=== PATIENT | male | born 1990 | race African-American/Black ===

== ENCOUNTER 2024-06-10 16:59 | Inpatient (IN) | payer MEDICARE ==
[2024-06-10] MEDS ORDERED: MAG HYDROX/AL HYDROX/SIMETH 355 ML BOTTLE PO PRN (17:01)
[2024-06-10] MEDS ORDERED: MAGNESIUM HYDROXIDE 2,400 MG/30 ML CUP PO PRN (17:01)
[2024-06-11] MEDS: HALOPERIDOL LACTATE 5 MG/ML 1 ML VIAL IM PRN (03:12)
[2024-06-11] MEDS: LORazepam 2 MG/ML INJ IM PRN (03:13)
[2024-06-11 07:53] LABS: Basophils % (A) 0 %; Eosinophils # (A) 0.2 k/uL (0-0.7); Eosinophils % (A) 5 %; HCT 40.1 % (39.0-53.0); HGB 12.3 gm/dL (13.0-17.5); Hypochromasia Slight; Lymphocytes # (A) 1.8 k/uL (1.0-4.8); Lymphocytes % (A) 49 %; MCH 29.1 pg (25.0-35.0); MCHC 30.7 g/dL (31.0-37.0); MCV 94.7 fL (80.0-100.0); Mean Platelet Volume 7.7; Monocytes # (A) 0.2 k/uL (0-1.0); Monocytes % (A) 5 %; Neutrophils # (A) 1.4 k/uL (1.3-7.7); Neutrophils % (A) 37 %; Platelet Count 276 k/uL (150-450); RBC 4.24 m/uL (4.30-5.90); RDW 12.3 % (11.5-15.5); WBC 3.7 k/uL (3.8-10.6)
[2024-06-11 08:01] LABS: ALT 34 U/L (4-49); AST 57 U/L (17-59); African American GFR (CKD) >90 (>60 ml/min/1.73 sqM); Albumin 3.8 g/dL (3.5-5.0); Alkaline Phosphatase 76 U/L (38-126); Anion Gap 6 mmol/L; Bilirubin,Unconjugated 0.2 mg/dL (0.0-1.1); Blood Urea Nitrogen 9 mg/dL (9-20); Calcium 8.9 mg/dL (8.4-10.2); Carbon Dioxide 26 mmol/L (22-30); Chloride 105 mmol/L (98-107); Glucose 92 mg/dL (74-99); Non-African American GFR(CKD) >90 (>60 ml/min/1.73 sqM); Potassium 4.1 mmol/L (3.5-5.1); Sodium 137 mmol/L (137-145); Total Bilirubin 0.2 mg/dL (0.2-1.3); Total Protein 6.2 g/dL (6.3-8.2)
[2024-06-11] MEDS: NICOTINE 21MG/24HR PATCH TRANSDERM SCH (09:09)
[2024-06-11] MEDS: LORazepam 1 MG TAB PO PRN (09:17)
[2024-06-11] MEDS: haloperidoL 5 MG TAB PO PRN ×2 (09:17→18:37)
[2024-06-11] MEDS: IBUPROFEN 600 MG TAB PO PRN (11:04)
[2024-06-11] MEDS ORDERED: HALOPERIDOL LACTATE 5 MG/ML 1 ML VIAL IM PRN (12:06)
[2024-06-11] MEDS: haloperidoL 5 MG TAB PO SCH (12:22)
[2024-06-11] MEDS: DIVALPROEX ER 500 MG TAB.ER.24H PO STA (12:22)
--- NOTE | 2024-06-11 12:24 | P.HP ---
Psychiatric H&P - . H&P Date: 06/11/24 History & Physical: Allergies Allergy/AdvReac Type Severity Reaction Status Date / Time No Known Allergies Allergy Verified 06/10/24 17:00 Vital Signs Temp 98.2 F 06/10/24 22:27 Pulse 78 06/10/24 22:27 Resp 20 06/10/24 22:27 BP 107/59 06/10/24 22:27 Pulse Ox 97 06/10/24 22:27 FiO2 Intake & Output 06/10/24 06/11/24 06/11/24 18:59 06:59 18:59 Weight 70 kg 71.849 kg Laboratory Last Values WBC 3.7 k/uL (3.8-10.6) L 06/11/24 07:18 RBC 4.24 m/uL (4.30-5.90) L 06/11/24 07:18 Hgb 12.3 gm/dL (13.0-17.5) L 06/11/24 07:18 Hct 40.1 % (39.0-53.0) 06/11/24 07:18 MCV 94.7 fL (80.0-100.0) 06/11/24 07:18 MCH 29.1 pg (25.0-35.0) 06/11/24 07:18 MCHC 30.7 g/dL (31.0-37.0) L 06/11/24 07:18 RDW 12.3 % (11.5-15.5) 06/11/24 07:18 Plt Count 276 k/uL (150-450) 06/11/24 07:18 MPV 7.7 06/11/24 07:18 Neutrophils % 37 % 06/11/24 07:18 Lymphocytes % 49 % 06/11/24 07:18 Monocytes % 5 % 06/11/24 07:18 Eosinophils % 5 % 06/11/24 07:18 Basophils % 0 % 06/11/24 07:18 Neutrophils # 1.4 k/uL (1.3-7.7) 06/11/24 07:18 Lymphocytes # 1.8 k/uL (1.0-4.8) 06/11/24 07:18 Monocytes # 0.2 k/uL (0-1.0) 06/11/24 07:18 Eosinophils # 0.2 k/uL (0-0.7) 06/11/24 07:18 Basophils # 0.0 k/uL (0-0.2) 06/11/24 07:18 Hypochromasia Slight 06/11/24 07:18 Sodium 137 mmol/L (137-145) 06/11/24 07:18 Potassium 4.1 mmol/L (3.5-5.1) 06/11/24 07:18 Chloride 105 mmol/L (98-107) 06/11/24 07:18 Carbon Dioxide 26 mmol/L (22-30) 06/11/24 07:18 Anion Gap 6 mmol/L 06/11/24 07:18 BUN 9 mg/dL (9-20) 06/11/24 07:18 Creatinine 0.84 mg/dL (0.66-1.25) 06/11/24 07:18 Est GFR (CKD-EPI)AfAm >90 (>60 ml/min/1.73 sqM) 06/11/24 07:18 Est GFR (CKD-EPI)NonAf >90 (>60 ml/min/1.73 sqM) 06/11/24 07:18 Glucose 92 mg/dL (74-99) 06/11/24 07:18 Calcium 8.9 mg/dL (8.4-10.2) 06/11/24 07:18 Total Bilirubin 0.2 mg/dL (0.2-1.3) 06/11/24 07:18 Conjugated Bilirubin 0.0 mg/dL (0.0-0.3) 06/11/24 07:18 Unconjugated Bilirubin 0.2 mg/dL (0.0-1.1) 06/11/24 07:18 Delta Bilirubin 0.0 mg/dL (0.0-0.2) 06/11/24 07:18 AST 57 U/L (17-59) 06/11/24 07:18 ALT 34 U/L (4-49) 06/11/24 07:18 Alkaline Phosphatase 76 U/L (38-126) 06/11/24 07:18 Total Protein 6.2 g/dL (6.3-8.2) L 06/11/24 07:18 Albumin 3.8 g/dL (3.5-5.0) 06/11/24 07:18 TSH 1.280 mIU/L (0.465-4.680) 06/11/24 07:18 06/11/24 08:45 IDENTIFYING DATA: Patient is a 34-year-old male. Lives with his sister, Unmarried, has 13 children. Works construction HPI: Patient presented to the hospital on 06/10, as a transfer from [facility]. As per EPS note, "Patient presented to [facility] by PD on petition stating "up and down emotions, combative verbally, walking into oncoming traffic. Bothering customers at local businesses. Clinical cert has diagnosis schizophrenia, paranoid type. Clinical cert states facts in support including walking into oncoming traffic, auditory hallucinations, delusions, and paranoid thoughts. Patient has had multiple inpatient psychiatric hospitalizations and states that he has not attended follow up and been noncompliant with outpatient medications. Patient has been sexually inappropriate verbally towards staff and verbally agitated requiring PRN in ER. RN verbalizes that patient placed in restraints due to verbal aggression and elopement risk. Patient able to be out of restraints and calm prior to transfer. Patient has had no physical outbursts and no physical harm to others. Patient denies suicidal and homicidal ideations. Patient reportedly recieved 3 PRNs since arriving at ER of Ativan 2MG IM, Haldol 5MG IM, and Benadryl 50MG IM on 06/09/2024 at 0800, 06/10/2024 at 0400 and 1130. Patient UDS+ Benzos, THC, and [place]. Patient denies ETOH use. Patient medical: missing all fingers on right hand per nurse to nurse, but able to attend to all ADLs on own, unknown reason for loss per ED RN. Patient had decreased potassium in ER 3.4, K+ replaced per ER report." Today, he states he does not know why he is in the hospital, he states the police took him to [facility], and then he got transferred here. Patient is a poor historian, and does not speak clearly. Patient is noted to be sexually inappropriate to peers and staff on the unit, and is currently on a 1:1 for safety. beelives that he does not need medications. has been intrusive and sexually innappropriate on the unit. Patient denies any suicidal or homicidal ideations intent or plan. At this time patient denies any auditory or visual hallucinations. Patient admits to using marijuana, and cigarettes, alcohol occasionally. PAST PSYCHIATRIC HISTORY: Patient states that he was inpatient at [facility] earlier this year. he claims that he follows up at [facility] with Dr Dutta. [Patient denies any history of suicide attempts in the past.] claims that he was previously on haldol and depakote in the past. PMH:As per ER note ALLERGIES: as per EMR CHEMICAL DEPENDENCY HISTORY: as per HPI FAMILY PSYCHIATRIC/SUBSTANCE USE HISTORY: [denies] SOCIAL HISTORY: Patient was born and raised in [[place], [place]. Unmarried, has 13 children, Lives with his sister, works construction. Has been to custodial, does not elaborate as to why. MENTAL STATUS EXAM: General Appearance: Patient appears to be [] stated age is alert, difficult to redirect, intrusive. Patient appears to have [poor] hygiene and grooming. Behavior: Patient is seated without any agitated behavior. intrusive. Speech: Patient's speech is garbled and nonpressured.] Mood/Affect: Patient reports their mood is fine, affect is congruent and constricted. Suicidality/Homicidality: Patient denies having any homicidal ideation intent or plan. [Denies any suicidal ideations intent or plan] Perceptions: Patient denies any visual hallucinations [and denies any auditory hallucinations] Though content/process: [There is no evidence of any delusional thought content and thought process is linear and goal-directed.] Memory and concentration: AOX3, grossly intact for the purposes of this session. Can spell "WORLD" backwards Judgment and insight: [poor]/impulsive. STRENGTHS/WEAKNESSES: strength is that patient is [resilient]. Weakness is that patient [has poor judgment and is impulsive] INTELLECT: [average] IMPRESSIONS: Schizophrenia cocaine abuse [nicotine dependance] [cannabis use disorder] PLAN: -Patient is admitted under [involuntary] status to MHU for stabilization of psychiatric symptoms and safety. Patient has [not] signed [adult voluntary form or medication consent] and is placed in patient's chart. [A second certification was completed and along with petition will be filed for court.] -Medications : Will start patient on Depakote 500mg qhs for mood stabilization, haldol 5mg bid for psychosis, cogentin 1mg qhs for EPS, trazodone 100mg qhs prn for sleep, -Ativan [and Haldol] PRN for agitation/aggression [-Patient was counselled on substance abuse and desired to cut back on use] -Patient was informed of the risks, benefits and side effects of the medication [and patient verbally consented to taking the medications. ] -Internal Medicine consult to perform medical evaluation and physical. -NRT - [nicotine patch] -SW on board for discharge planning. Encourage patient to participate in groups to work on coping skills. [Will await deferral and court date.] 06/11/24 11:58 06/11/24 12:22
[2024-06-11 15:11] LABS: Chol/HDL Ratio 2.69 Ratio; LDL Cholesterol,Calculated 58.9 mg/dL (0.0-131.0); VLDL Calculation 11.42 mg/dL (5.00-40.00)
[2024-06-11] MEDS: chlorproMAZINE 25 MG/ML 2 ML AMP IM STA (15:15)
[2024-06-11] MEDS: diphenhydrAMINE 50 MG/ML 1 ML VIAL IM STA (15:15)
[2024-06-11] MEDS ORDERED: DIVALPROEX ER 500 MG TAB.ER.24H PO SCH (21:00)
[2024-06-11] MEDS: ACETAMINOPHEN TAB 325 MG TAB PO PRN (21:38)
[2024-06-11] MEDS: VALPROIC ACID ORAL SOLN 250 MG/5 ML CUP PO SCH (21:39)
[2024-06-11] MEDS: traZODone HCL 100 MG TAB PO PRN (21:39)
[2024-06-11] MEDS: BENZTROPINE MESYLATE 1 MG TAB PO SCH (21:39)
--- NOTE | 2024-06-12 10:59 | P.PN ---
Progress Note - Text Progress Note Date: 06/12/24 Interval History: [place] [facility] [place] and was directable and agreeable to speak with literary writer.. The patient states he feels a lot better today. He states that he missed his last ZEE, but once he gets it back in his system, he will be like new again. Patient is currently still on a security 1:1, due to his sexually inappropriate behavior, however, the patient does seem to be mildly improving. Mechanical Maintenance Worker spoke to patient about receiving a ZEE, patient agreeable. Patient states that he slept like a baby last night, and that his appetite is good. He is concerned about a job interview Sunday, and he would like to be out by then. At this time patient denies any suicidal or homical ideations, intent or plan. Patient denies any auditory, visual hallucinations and denies any paranoia or delusions. Patient denies any side effects from the medications and has been compliant with meds. MENTAL STATUS EXAM: General Appearance: Patient appears to be stated age is alert, difficult to redirect, intrusive. Patient appears to have mildly improving hygiene and grooming. Wearing a sock on his head, and wearing glasses. Behavior: Patient is seated without any agitated behavior. intrusive. improving mildly Speech: Patient's speech is rapid and nonpressured. Mood/Affect: Patient reports their mood is fine, affect is congruent and constricted. improving mildly Suicidality/Homicidality: Patient denies having any homicidal ideation intent or plan. Denies any suicidal ideations intent or plan Perceptions: Patient denies any visual hallucinations and denies any auditory hallucinations Though content/process: There is no evidence of any delusional thought content and thought process is linear and goal-directed. rambling at times, focused on discharge Memory and concentration: AOX3, grossly intact for the purposes of this session. Judgment and insight: Poor/impulsive. mildly improving IMPRESSIONS: Schizophrenia cocaine abuse Nicotine dependance Cannabis use disorder PLAN: -Patient is admitted under involuntary status to MHU for stabilization of psychiatric symptoms and safety. Patient has not signed adult voluntary form or medication consent and is placed in patient's chart. -Medications : increase Depakene Syrup 750mg qhs for mood stabilization, increase haldol 7mg bid for psychosis, cogentin 1mg qhs for EPS, trazodone 100mg qhs prn for sleep, will give Haldol D injection tomorrow. -Ativan and Haldol PRN for agitation/aggression -continue 1:1 sitter as patient is still impulsive and sexually preoccupied. -NRT -nicotine patch -SW on board for discharge planning. Encourage patient to participate in groups to work on coping skills. Will await deferral and court date. hopeful to discharge early next week once patient is transitioned onto ZEE.
[2024-06-12] MEDS: NICOTINE GUM (POLACRILEX) 2 MG GUM BUCCAL PRN (11:49)
--- NOTE | 2024-06-12 16:56 | P.PN ---
Progress Note - Text Progress Note Date: 06/12/24 Discussed with RN, patient is actively manic and not appropriate to be seen and evaluated at this time.
--- NOTE | 2024-06-12 17:41 | P.PN ---
Progress Note - Text Progress Note Date: 06/11/24 attempted to see patient. Patient not stable to be assessed.
[2024-06-12] MEDS: haloperidoL 5 MG TAB PO SCH (21:40)
[2024-06-12] MEDS: VALPROIC ACID ORAL SOLN 250 MG/5 ML CUP PO SCH (21:40)
--- NOTE | 2024-06-13 10:55 | P.PN ---
Progress Note - Text Progress Note Date: 06/13/24 Interval History: Patient was seen in the [facility] [place], and was directable and agreeable to speak with director underwriter sales. The patient states he is good today. Patient is currently still on a security 1:1, due to his sexually inappropriate behavior, however, the patient continues to be mildly improving. Paper Mill Superintendent spoke to patient about receiving a ZEE, patient agreeable. Will give first dose today. Patient states that he slept well last night, and that his appetite is good. He is still quite intrusive, and ramb ling on at times, this is improving mildly compared to yesterday. He is not endorsing any depression or anxiety. At this time patient denies any suicidal or homicidal ideations, intent or plan. Patient denies any auditory, visual hallucinations and denies any paranoia or delusions. Patient denies any side effects from the medications and has been compliant with meds. MENTAL STATUS EXAM: General Appearance: Patient appears to be stated age is alert, difficult to redirect, intrusive. Patient appears to have mildly improving hygiene and grooming. Wearing a sock on his head, and wearing glasses. Behavior: Patient is seated without any agitated behavior. intrusive. improving mildly Speech: Patient's speech is rapid and nonpressured. Mood/Affect: Patient reports their mood is good, affect is congruent and constricted. improving mildly Suicidality/Homicidality: Patient denies having any homicidal ideation intent or plan. Denies any suicidal ideations intent or plan Perceptions: Patient denies any visual hallucinations and denies any auditory hallucinations Though content/process: There is no evidence of any delusional thought content and thought process is linear and goal-directed. rambling at times, focused on discharge Memory and concentration: AOX3, grossly intact for the purposes of this session. Judgment and insight: Poor/impulsive. mildly improving IMPRESSIONS: Schizophrenia cocaine abuse Nicotine dependance Cannabis use disorder PLAN: -Patient is admitted under involuntary status to MHU for stabilization of psychiatric symptoms and safety. Patient has not signed adult voluntary form or medication consent and is placed in patient's chart. -Medications : increase Depakene Syrup 1000mg qhs for mood stabilization, haldol PO for psychosis, titrate down over the weekend, increase cogentin 2mg qhs for EPS, increase trazodone 150mg qhs for sleep, add Haldol D 100 mg IM today, 06/13, next dose of 60mg IM 06/15, then 160 mg q 3 weeks, with it being due 07/04. -Ativan and Haldol PRN for agitation/aggression -continue 1:1 sitter as patient is still impulsive and sexually preoccupied. -NRT -nicotine patch -SW on board for discharge planning. Encourage patient to participate in groups to work on coping skills. Will await deferral and court date. hopeful to discharge sunday once patient is transitioned onto ZEE.
[2024-06-13] MEDS: HALOPERIDOL DECANOATE 100 MG/ML 1 ML VIAL IM STA (11:14)
[2024-06-13] MEDS: traZODone HCL 50 MG TAB PO SCH (21:02)
[2024-06-13] MEDS: VALPROIC ACID ORAL SOLN 250 MG/5 ML CUP PO SCH (21:03)
[2024-06-13] MEDS: haloperidoL 5 MG TAB PO ONE (21:03)
[2024-06-13] MEDS: BENZTROPINE MESYLATE 1 MG TAB PO SCH (21:03)
[2024-06-14] MEDS: haloperidoL 5 MG TAB PO SCH (08:13)
--- NOTE | 2024-06-14 15:18 | P.PN ---
Progress Note - Text Progress Note Date: 06/14/24 Interval History: Patient was seen wandering, and was directable and agreeable to speak with ciro butler in the interview room. Patient is currently still on a security 1:1, due to his sexually inappropriate behavior. discussed that his behaviors be to continue to improve should there be a consideration for discharge. Patient states expresses awareness into his behaviors and recognizes that they can seem disrespectful and frustrating to others and expresses that he will attempt to reduce them. However, he continues to be intrusive, displays elevated energy, and poor physical boundaries. He says his mood is "real good "and reports that he is doing well on the medications. He endorses good sleep and appetite. He asks that someone call his mother prior to discharge. At this time patient denies any suicidal or homicidal ideations, intent or plan. Patient denies any auditory, visual hallucinations and denies any paranoia or delusions. Patient denies any side effects from the medications and has been compliant with meds. MENTAL STATUS EXAM: General Appearance: Patient appears to be stated age is alert, able to redirect, intrusive. Patient appears to have mildly improving hygiene and grooming. Wearing a sock on his head, and wearing glasses. No jaundice Behavior: Patient is seated without any agitated behavior. intrusive Speech: Patient's speech is hyperverbal and nonpressured. Mood/Affect: Patient reports their mood is good, affect is congruent and constricted. improving mildly Suicidality/Homicidality: Patient denies having any homicidal ideation intent or plan. Denies any suicidal ideations intent or plan Perceptions: Patient denies any visual hallucinations and denies any auditory hallucinations Though content/process: There is no evidence of any delusional thought content and thought process is linear and goal-directed. rambling at times, focused on discharge Memory and concentration: AOX3, grossly intact for the purposes of this session. Judgment and insight: Poor/impulsive. mildly improving IMPRESSIONS: Schizoaffective disorder, bipolar type cocaine abuse Nicotine dependance Cannabis use disorder PLAN: -Patient is admitted under involuntary status to MHU for stabilization of psychiatric symptoms and safety. Patient has not signed adult voluntary form or medication consent and is placed in patient's chart. -Medications : Increase Depakene Syrup to 1250mg qhs for mood stabilization, haldol PO for psychosis, titrate down over the weekend, cogentin 2mg qhs for EPS, trazodone 150mg qhs for sleep, add Haldol D 100 mg IM today, 06/13, next dose of 60mg IM 06/15, then 160 mg q 3 weeks, with it being due 07/04. -Ativan and Haldol PRN for agitation/aggression -continue 1:1 sitter as patient is still impulsive and sexually preoccupied. -NRT -nicotine patch -SW on board for discharge planning. Encourage patient to participate in groups to work on coping skills. Will await deferral and court date. hopeful to discharge sunday once patient is transitioned onto ZEE.
[2024-06-14] MEDS: VALPROIC ACID ORAL SOLN 250 MG/5 ML CUP PO SCH (19:50)
[2024-06-15] MEDS: HALOPERIDOL DECANOATE 100 MG/ML 1 ML VIAL IM ONE (09:55)
--- NOTE | 2024-06-15 12:05 | P.PN ---
Progress Note - Text Progress Note Date: 06/15/24 Interval History: Patient was seen wandering, and was directable and agreeable to speak with ciro butler in the interview room. Patient is currently still on a security 1:1, due to his sexually inappropriate behavior. Discussed that his behaviors be to continue to improve should there be a consideration for discharge, but patient has been intrusive, inappropriate, lacking physical boundaries, and disinhibited. Informed to keep distance from others and not encroach in their physical space. Patient perseverates on calling various people and impulsively reaches for this provider's phone and then for a paperclip. He makes sexually inappropriate comments during assessment but is able to be verbally redirected. He says his mood is "hyper " because he would like to go home tomorrow. He endorses good sleep and appetite. He asks that someone call his mother prior to discharge. He reports sleeping well and eating well. At this time patient denies any suicidal or homicidal ideations, intent or plan. Patient denies any auditory, visual hallucinations and denies any paranoia or delusions. Patient denies any side effects from the medications and has been compliant with meds. MENTAL STATUS EXAM: General Appearance: Patient appears to be stated age is alert, able to redirect, intrusive. Patient appears to have mildly improving hygiene and grooming. Wearing a sock on his head. No jaundice Behavior: Patient has elevated energy and intrusive. Disinhibition Speech: Patient's speech is hyperverbal and nonpressured. Mood/Affect: Patient reports their mood is "hyper", affect is elevated Suicidality/Homicidality: Patient denies having any homicidal ideation intent or plan. Denies any suicidal ideations intent or plan Perceptions: Patient denies any visual hallucinations and denies any auditory hallucinations Though content/process: There is no evidence of any delusional thought content and thought process is linear and goal-directed. rambling at times, focused on discharge Memory and concentration: AOX3, grossly intact for the purposes of this session. Judgment and insight: Poor/impulsive. mildly improving IMPRESSIONS: Schizoaffective disorder, bipolar type cocaine abuse Nicotine dependance Cannabis use disorder PLAN: -Patient is admitted under involuntary status to MHU for stabilization of psychiatric symptoms and safety. Patient has not signed adult voluntary form or medication consent and is placed in patient's chart. -Medications : Increase Depakene Syrup to 250 qAM and 1250mg qhs for mood stabilization, haldol PO tapered off, cogentin 2mg qhs for EPS, trazodone 150mg qhs for sleep, Haldol D 100 mg IM 06/13, received today 60mg IM 06/15 -Ativan and Haldol PRN for agitation/aggression -continue 1:1 sitter as patient is still impulsive and sexually preoccupied. -NRT -nicotine patch -SW on board for discharge planning. Encourage patient to participate in groups to work on coping skills. Will await deferral and court date.
[2024-06-15] MEDS: VALPROIC ACID ORAL SOLN 250 MG/5 ML CUP PO SCH (12:30)
[2024-06-15] MEDS: haloperidoL 1 MG TAB PO ONE (20:37)
[2024-06-16] MEDS ORDERED: traZODone HCL 100 MG TAB PO PRN (10:09)
[2024-06-16] MEDS ORDERED: traZODone HCL 50 MG TAB PO PRN (10:21)
--- NOTE | 2024-06-16 10:30 | P.PN ---
Progress Note - Text Progress Note Date: 06/16/24 Interval History: [facility], and was directable and agreeable to speak with database report writer. Patient remains on a 1:1, due to his sexually inappropriate behavior. Discussed that his behaviors need to continue to improve should there be a consideration for discharge, but patient has continued to be intrusive, inappropriate, lacking physical boundaries, and disinhibited. Director Microbiology explained to the patient that he needs to practice more self control, and stay away from female co-patients, due to him making them feel uncomfortable. Patient verbalized understanding, however, is still focused on discharge. He endorses good sleep and appetite. He reports sleeping well and eating well. At this time patient denies any suicidal or homicidal ideations, intent or plan. Patient denies any auditory, visual hallucinations and denies any paranoia or delusions. Patient denies any side effects from the medications and has been compliant with meds. MENTAL STATUS EXAM: General Appearance: Patient appears to be stated age is alert, able to redirect, intrusive. Patient appears to have mildly improving hygiene and grooming. Behavior: Patient has elevated energy and intrusive. mildly improving. Speech: Patient's speech is hyperverbal and nonpressured. Mood/Affect: Patient reports their mood is "great", affect is elevated Suicidality/Homicidality: Patient denies having any homicidal ideation intent or plan. Denies any suicidal ideations intent or plan Perceptions: Patient denies any visual hallucinations and denies any auditory hallucinations Though content/process: There is no evidence of any delusional thought content and thought process is linear and goal-directed. rambling at times, focused on discharge Memory and concentration: AOX3, grossly intact for the purposes of this session. Judgment and insight: Poor/impulsive. mildly improving IMPRESSIONS: Schizoaffective disorder, bipolar type cocaine abuse Nicotine dependance Cannabis use disorder PLAN: -Patient is admitted under involuntary status to MHU for stabilization of psychiatric symptoms and safety. Patient has not signed adult voluntary form or medication consent and is placed in patient's chart. -Medications : add seroquel 100mg daily + 200mg qhs, increase Depakene Syrup to 500mg qAM and 1250mg qhs for mood stabilization, cogentin 2mg qhs for EPS, change trazodone 150mg qhs PRN for sleep, Haldol D 100 mg IM 06/13, 60mg IM 06/15, potential 50mg IM dose of Haldol D on 06/17 -Ativan and Haldol PRN for agitation/aggression -continue 1:1 sitter as patient is still impulsive and sexually preoccupied. -NRT -nicotine patch -SW on board for discharge planning. Encourage patient to participate in groups to work on coping skills. Will await deferral and court date.
[2024-06-16] MEDS: QUEtiapine 100 MG TAB PO SCH (11:14)
[2024-06-16] MEDS: VALPROIC ACID ORAL SOLN 250 MG/5 ML CUP PO SCH (11:40)
[2024-06-16] MEDS: chlorproMAZINE 25 MG TAB PO PRN (11:42)
[2024-06-16] MEDS: LORazepam 2 MG/ML INJ IM PRN (18:54)
[2024-06-16] MEDS: ZIPRASIDONE 20 MG VIAL IM STA (18:55)
[2024-06-17] MEDS: QUEtiapine 200 MG TAB PO SCH
[2024-06-17] MEDS: chlorproMAZINE 25 MG/ML 2 ML AMP IM PRN (05:11)
--- NOTE | 2024-06-17 11:05 | P.PN ---
Progress Note - Text Progress Note Date: 06/17/24 Interval History: Patient was seen in his room, and was directable and agreeable to speak with ruben pascal at the bedside. Patient remains on a 1:1, due to his sexually inappropriate behavior. Discussed once again that his behaviors need to continue to improve should there be a consideration for discharge, but patient has continued to be intrusive, inappropriate, lacking physical boundaries, and physically violent, punching hill. The patient required security assist yesterday afternoon and this morning for IM PRNs, for being verbally and physically violent. Elementary Education Teacher explained to the patient that he needs to practice more self control. Patient verbalized understanding, however, is still focused on discharge. He endorses good sleep and appetite. He reports sleeping well and eating well. At this time patient denies any suicidal or homicidal ideations, intent or plan. Patient denies any auditory, visual hallucinations and denies any paranoia or delusions. Patient denies any side effects from the medications and has been compliant with meds. MENTAL STATUS EXAM: General Appearance: Patient appears to be stated age is alert, able to redirect, intrusive. Patient appears to have mildly improving hygiene and grooming. Behavior: Patient has elevated energy and intrusive. mildly improving, fairly sedated Speech: Patient's speech is a mumble and nonpressured Mood/Affect: Patient reports their mood is "all right", affect is constricted Suicidality/Homicidality: Patient denies having any homicidal ideation intent or plan. Denies any suicidal ideations intent or plan Perceptions: Patient denies any visual hallucinations and denies any auditory hallucinations Though content/process: There is no evidence of any delusional thought content and thought process is linear and goal-directed. rambling at times, focused on discharge Memory and concentration: AOX3, grossly intact for the purposes of this session. Judgment and insight: Poor/impulsive. mildly improving IMPRESSIONS: Schizoaffective disorder, bipolar type cocaine abuse Nicotine dependance Cannabis use disorder PLAN: -Patient is admitted under involuntary status to MHU for stabilization of psychiatric symptoms and safety. Patient has not signed adult voluntary form or medication consent and is placed in patient's chart. -Medications : Increase seroquel 200mg daily + 300mg qhs, increase Depakene Syrup to 500mg qAM and 1500mg qhs for mood stabilization, cogentin 2mg qhs for EPS, trazodone 150mg qhs PRN for sleep, Haldol D 100 mg IM 06/13, 60mg IM 06/15, will give 50mg IM dose of Haldol D today on 06/17 -Ativan and Haldol PRN for agitation/aggression -continue 1:1 sitter as patient is still impulsive and sexually preoccupied. -NRT -nicotine patch -SW on board for discharge planning. Encourage patient to participate in groups to work on coping skills. Will await deferral and court date. hopeful for discharge in 1-2 days
[2024-06-17] MEDS: HALOPERIDOL DECANOATE 50 MG/ML 1 ML VIAL IM ONE (17:03)
[2024-06-17] MEDS: QUEtiapine 100 MG TAB PO SCH (20:16)
[2024-06-17] MEDS: VALPROIC ACID ORAL SOLN 250 MG/5 ML CUP PO SCH (20:17)
[2024-06-18] MEDS: QUEtiapine 200 MG TAB PO SCH (08:50)
[2024-06-18 08:54] VITALS: BP 115/82; PULSE 112; RESP 20; TEMP 97.2
--- NOTE | 2024-06-18 11:30 | P.DS ---
Providers Date of admission: 06/10/24 22:17 Expected date of discharge: 06/18/24 Attending physician: Thierno Rosa MD Consults: 06/10/24 17:01 Consult Physician Routine Consulting Provider: Bay Tomlinson Consult Reason/Comments: History and Physical, New Admission Do you want consulting provider notified?: Yes Primary care physician: Stated None - Discharge Diagnosis(es) (1) Schizoaffective disorder, bipolar type Current Visit: Yes Status: Acute Priority: High (2) Cocaine abuse Current Visit: Yes Status: Acute Priority: High (3) Nicotine dependence Current Visit: Yes Status: Acute Priority: Low (4) Cannabis use disorder Current Visit: Yes Status: Acute Priority: Medium Hospital Course: Admission HPI: Admission note was completed by insurance writer "Patient is a 34-year-old male. Lives with his sister, Unmarried, has 13 children. Works construction. Patient presented to the hospital on 06/10, as a transfer from [facility]. As per EPS note, "Patient presented to [facility] by PD on petition stating "up and down emotions, combative verbally, walking into oncoming traffic. Bothering customers at local [employer]. Clinical cert has diagnosis schizophrenia, paranoid type. Clinical cert states facts in support including walking into oncoming traffic, auditory hallucinations, delusions, and paranoid thoughts. Patient has had multiple inpatient psychiatric hospitalizations and states that he has not attended follow up and been noncompliant with outpatient medications. Patient has been sexually inappropriate verbally towards staff and verbally agitated requiring PRN in ER. RN verbalizes that patient placed in restraints due to verbal aggression and elopement risk. Patient able to be out of restraints and calm prior to transfer. Patient has had no physical outbursts and no physical harm to others. Patient denies suicidal and homicidal ideations. Patient reportedly recieved 3 PRNs since arriving at ER of Ativan 2MG IM, Haldol 5MG IM, and Benadryl 50MG IM on 06/09/2024 at 0800, 06/10/2024 at 0400 and 1130. Patient UDS+ Benzos, THC, and Cocaine. Patient denies ETOH use. Patient medical: missing all fingers on right hand per nurse to nurse, but able to attend to all ADLs on own, unknown reason for loss per ED RN. Patient had decreased potassium in ER 3.4, K+ replaced per ER report." Today, he states he does not know why he is in the hospital, he states the police took him to [place], and then he got transferred here. Patient is a poor historian, and does not speak clearly. Patient is noted to be sexually inappropriate to peers and staff on the unit, and is currently on a 1:1 for safety. beelives that he does not need medications. has been intrusive and sexually innappropriate on the unit. Patient denies any suicidal or homicidal ideations intent or plan. At this time patient denies any auditory or visual hallucinations. Patient admits to using marijuana, and cigarettes, alcohol occasionally." Hospital course: Upon admission to the unit patient was admitted involuntarily on a petition and certificate and a second certificate was completed and faxed to the courts. Patient apparently already was on a active court order through [facility]. Patient was initially fairly impulsive, sexually preoccupied however with time he eventually and got along well with other patients on the unit and followed unit protocol. patient did have several PRN meds for agitation and intrusiveness and not being directable. Patient was compliant with the medications and denied any side effects throughout hospital course. Patient was started on [haldol and transitioned onto ZEE Haldol D a total of 200 mg IM to help ensure compliance. depakote increased to 500 mg daily + 1500 mg PO hs for mood stabilization. Seroquel 200 mg daily +300 mg nightly for mood stabilization trazodone 150 mg qhs for insomnia/mood. cogentin 2 mg hs for eps prophylaxis. Patient spoke of his stressors. Patient was also seen by medical team for history and physical exam. Throughout the course of the hospitalization patient gradually improved with regards to mood, anxiety, agitation, impulsivity and psychosis, sleep and returned back to their baseline level of functioning. On the day of discharge patient denied any suicidal or homicidal ideations intent or plan denied any auditory or visual hallucinations. Patient endorsed wanting to live for their health and kids. The patient denied any access to guns or weapons. Patient denied any paranoia and did not endorse any delusions. Patient does have a significant history of substance abuse and was counseled on abstaining from all substances including alcohol and marijuana. Patient was offered however declined inpatient substance-abuse rehab. Patient elected to do outpatient substance use treatment program through their outpatient provider. Patient was also counseled on the medications and need for regular compliance and was encouraged to follow-up with their outpatient appointment for mental health and also for primary care. Sw attempted several times to speak to patients girlfriend however she did not return the call. patient did speak with her and claims that he is allowed back, he has the keys and he will also be following up at [facility] with his psychiatrist Dr. Dutta for continued outpatient mental health treatment. Mental status exam: General Appearance: Patient appears to be wearing a hat, stated age is alert, pleasant, and comes to be cooperative. Patient is in no acute distress and has improved hygiene and grooming Behavior: Patient is calmly seated without any agitated behavior. Less intrusive and impulsive today. Speech: Patient's speech is fluent and nonpressured. Mood/Affect: Patient reports their mood is "good", affect is congruent and euthymic. Suicidality/Homicidality: Patient denies having any suicidal or homicidal ideation intent or plan. Perceptions: Patient denies any auditory or visual hallucinations. Though content/process: There is no evidence of any delusional thought content and thought process is linear and goal-directed. More future oriented Memory and concentration: AOX3, grossly intact for the purposes of this session. Can spell "WORLD" backwards correctly. Judgment and insight: Chronically poor/limited and impulsive, however has improved with guarded prognosis Impression: Schizoaffective disorder bipolar type Traumatic brain injury Cocaine abuse Cannabis use disorder Nicotine dependence Plan: -Continue with discharge today as patient has improved and stabilized psychiatrically and is not currently an imminent threat to themself and/or others. Patient will remain at chronically elevated risk for harm to self and/or others due to their impulsivity and substance abuse. -Continue medications: Seroquel 200 mg daily +300 mg nightly for mood stabilization, Haldol D IM every 2 weeks 200 mg, next dose will be due on 06/30. Depakote 500 mg daily +1500 mg nightly for mood stabilization/agitation, Cogentin 2 mg nightly for EPS symptoms, trazodone 150 mg nightly as needed for sleep -Patient was counseled on the need for medication compliance and appropriate follow-up at mental health and also primary care for medical issues. Patient verbalized understanding and agreed. -Social work to help coordinate patients discharge today arrange for and conduct family meeting to ensure safety upon discharge and answer any questions/concerns. patient will be given a ride back to his home in [place] with his girlfriend and will continue with his outpatient follow up [facility] with Dr Dutta. also to ensure safe home environment that guns/weapons are either removed from the home or locked away. Social work also to arrange for patients follow up appointments for psychiatric care along with follow up with primary care provider. -Patient counseled on abstaining from recreational drugs and marijuana and alcohol. Was informed/educated on the adverse effects on their physical and mental health. Patient verbally agreed and understood. Patient was offered substance abuse treatment however declined at this time. -Patient was instructed to return to the hospital or seek immediate medical care if their psychiatric or medical symptoms do worsen or reoccur. Allergies Allergy/AdvReac Type Severity Reaction Status Date / Time No Known Allergies Allergy Verified 06/11/24 13:33 Laboratory Results WBC 3.7 k/uL (3.8-10.6) L 06/11/24 07:18 RBC 4.24 m/uL (4.30-5.90) L 06/11/24 07:18 Hgb 12.3 gm/dL (13.0-17.5) L 06/11/24 07:18 Hct 40.1 % (39.0-53.0) 06/11/24 07:18 MCV 94.7 fL (80.0-100.0) 06/11/24 07:18 MCH 29.1 pg (25.0-35.0) 06/11/24 07:18 MCHC 30.7 g/dL (31.0-37.0) L 06/11/24 07:18 RDW 12.3 % (11.5-15.5) 06/11/24 07:18 Plt Count 276 k/uL (150-450) 06/11/24 07:18 MPV 7.7 06/11/24 07:18 Neutrophils % 37 % 06/11/24 07:18 Lymphocytes % 49 % 06/11/24 07:18 Monocytes % 5 % 06/11/24 07:18 Eosinophils % 5 % 06/11/24 07:18 Basophils % 0 % 06/11/24 07:18 Neutrophils # 1.4 k/uL (1.3-7.7) 06/11/24 07:18 Lymphocytes # 1.8 k/uL (1.0-4.8) 06/11/24 07:18 Monocytes # 0.2 k/uL (0-1.0) 06/11/24 07:18 Eosinophils # 0.2 k/uL (0-0.7) 06/11/24 07:18 Basophils # 0.0 k/uL (0-0.2) 06/11/24 07:18 Hypochromasia Slight 06/11/24 07:18 Sodium 137 mmol/L (137-145) 06/11/24 07:18 Potassium 4.1 mmol/L (3.5-5.1) 06/11/24 07:18 Chloride 105 mmol/L (98-107) 06/11/24 07:18 Carbon Dioxide 26 mmol/L (22-30) 06/11/24 07:18 Anion Gap 6 mmol/L 06/11/24 07:18 BUN 9 mg/dL (9-20) 06/11/24 07:18 Creatinine 0.84 mg/dL (0.66-1.25) 06/11/24 07:18 Est GFR (CKD-EPI)AfAm >90 (>60 ml/min/1.73 sqM) 06/11/24 07:18 Est GFR (CKD-EPI)NonAf >90 (>60 ml/min/1.73 sqM) 06/11/24 07:18 Glucose 92 mg/dL (74-99) 06/11/24 07:[address] Glu mg/dL 103 mg/dL 06/11/24 07:18 Hemoglobin A1c 5.2 % (<=6.0) 06/11/24 07:18 Calcium 8.9 mg/dL (8.4-10.2) 06/11/24 07:18 Total Bilirubin 0.2 mg/dL (0.2-1.3) 06/11/24 07:18 Conjugated Bilirubin 0.0 mg/dL (0.0-0.3) 06/11/24 07:18 Unconjugated Bilirubin 0.2 mg/dL (0.0-1.1) 06/11/24 07:18 Delta Bilirubin 0.0 mg/dL (0.0-0.2) 06/11/24 07:18 AST 57 U/L (17-59) 06/11/24 07:18 ALT 34 U/L (4-49) 06/11/24 07:18 Alkaline Phosphatase 76 U/L (38-126) 06/11/24 07:18 Total Protein 6.2 g/dL (6.3-8.2) L 06/11/24 07:18 Albumin 3.8 g/dL (3.5-5.0) 06/11/24 07:18 Triglycerides 57.10 mg/dL (0.00-149.00) 06/11/24 07:18 Cholesterol 112.00 mg/dL (0.00-200.00) 06/11/24 07:18 LDL Cholesterol, Calc 58.9 mg/dL (0.0-131.0) 06/11/24 07:18 VLDL Cholesterol, Calc 11.42 mg/dL (5.00-40.00) 06/11/24 07:18 HDL Cholesterol 41.70 mg/dL (40.00-60.00) 06/11/24 07:18 Cholesterol/HDL Ratio 2.69 Ratio 06/11/24 07:18 TSH 1.280 mIU/L (0.465-4.680) 06/11/24 07:18 Vital Signs Temp 97.2 F L 06/18/24 08:53 Pulse 112 H 06/18/24 08:53 Resp 20 06/18/24 08:53 BP 115/82 06/18/24 08:53 Pulse Ox 99 06/14/24 06:00 FiO2 Patient Condition at Discharge: Stable Plan - Discharge Summary Discharge Rx Participant: No New Discharge Prescriptions: New Benztropine Mesylate [Cogentin] 2 mg PO HS 30 Days #30 tab Divalproex ER [Depakote ER] 500 mg PO DAILY 14 Days #14 tab Divalproex ER [Depakote ER] 1,500 mg PO HS 14 Days #42 tab Ibuprofen [Motrin] 600 mg PO Q6HR PRN tab PRN Reason: Moderate Pain (Scale 4 To 6) Nicotine Gum (Polacrilex) [Nicorette] 2 mg BUCCAL Q4HR PRN 30 Days #180 pieceofgum PRN Reason: Nicotine Cravings QUEtiapine FUMARATE [SEROquel] 300 mg PO HS 14 Days #14 tablet QUEtiapine FUMARATE [SEROquel] 200 mg PO DAILY 14 Days #14 tablet Haloperidol Decanoate [Haldol D] 200 mg IM Q14D #1 each Nicotine 21Mg/24Hr Patch [Habitrol] 1 patch TRANSDERM DAILY 14 Days #14 patch Discontinued OLANZapine [ZyPREXA] 2.5 mg PO BID Divalproex [Depakote] 750 mg PO Q12H Discharge Medication List Benztropine Mesylate [Cogentin] 2 mg PO HS 30 Days #30 tab 06/18/24 [Rx] Divalproex ER [Depakote ER] 1,500 mg PO HS 14 Days #42 tab 06/18/24 [Rx] Divalproex ER [Depakote ER] 500 mg PO DAILY 14 Days #14 tab 06/18/24 [Rx] Haloperidol Decanoate [Haldol D] 200 mg IM Q14D #1 each 06/18/24 [Rx] Ibuprofen [Motrin] 600 mg PO Q6HR PRN tab 06/18/24 [Rx] Nicotine 21Mg/24Hr Patch [Habitrol] 1 patch TRANSDERM DAILY 14 Days #14 patch 06/18/24 [Rx] Nicotine Gum (Polacrilex) [Nicorette] 2 mg BUCCAL Q4HR PRN 30 Days #180 pieceofgum 06/18/24 [Rx] QUEtiapine FUMARATE [SEROquel] 200 mg PO DAILY 14 Days #14 tablet 06/18/24 [Rx] QUEtiapine FUMARATE [SEROquel] 300 mg PO HS 14 Days #14 tablet 06/18/24 [Rx] Follow up Appointment(s)/Referral(s): [facility] [Other] - 06/20/24 2:00 pm [facility] [Other] - 1 Week Patient Instructions/Handouts: How to Stop Smoking (DC), Cocaine Abuse (ED), Schizoaffective Disorder (ED), Cannabis Abuse (DC) Activity/Diet/Wound Care/Special Instructions: Avoid the use of street drugs and alcohol. Take all medications as prescribed. When you are in need of refills on your medications, please contact your medical provider and/or outpatient psychiatrist/provider to have this done. Please go to your scheduled outpatient appointment for aftercare treatment. If symptoms return or become worse, call the crisis line at and/or go to the nearest emergency room for evaluation. National Suicide Hotline 988 Discharge Disposition: HOME SELF-CARE
== END 2024-06-18 12:27 | disposition home or self-care (01) | DRG 885 ==
LOC: 3MHU 22:17
PROVIDERS: ADMIT Psychiatry & Neurology Psychiatry; ATTEND Psychiatry & Neurology Psychiatry
DX: F25.0 Schizoaffective disorder, bipolar type (principal); S06.9XAA Unspecified intracranial injury with loss of consciousness status unknown, initial encounter; F12.90 Cannabis use, unspecified, uncomplicated; F17.200 Nicotine dependence, unspecified, uncomplicated; F14.10 Cocaine abuse, uncomplicated; F20.0 Paranoid schizophrenia; G47.00 Insomnia, unspecified; Z79.899 Other long term (current) drug therapy
CPT/HCPCS: 80053; 80061; 82248; 83036; 84443; 85025